=== PATIENT | female | born 1950 | race Caucasian/White ===

== ENCOUNTER → 2016-12-14 | Outpatient (CLI) | payer OTHER ==
[~2016-12-14] MED LIST: ASCO1CAP3 PO; CRAN1CAP15 PO; FERR324T PO
--- NOTE | 2016-12-14 08:45 | DIAGNOSTIC IMAGING REPORT ---
GI SERIES W/O KUB CLINICAL HISTORY: Parasellar joint hernia repair. COMPARISON STUDY: 02/09/2015 FLUOROSCOPY TIME: 2.4 minutes. 19 fluoroscopic spot images were acquired.. FINDINGS: The patient swallowed barium without difficulty. There is been interval repair of the previously identified paraesophageal hernia. No esophageal masses are visualized. There is no evidence of recurrent hernia. Irregularity of the gastric cardia is felt to be postsurgical. No gastric masses are visualized. There is no gastric outlet obstruction. The duodenal bulb appears normal. Ligament Treitz is located in the normal anatomical position. IMPRESSION: 1. Interval repair of the previously identified paraesophageal hernia. No acute findings. Electronically signed by: Samir Toney M.D. 12/14/2016 8:43 AM Dictated Date/Time: 12/14/2016 8:38 AM
== END | disposition home or self-care (01) ==
LOC: C.RAD 08:06
PROVIDERS: ATTEND Surgery
DX: K44.9 Diaphragmatic hernia without obstruction or gangrene (principal)

== ENCOUNTER → 2017-10-02 | Outpatient (CLI) | payer OTHER ==
--- NOTE | 2017-10-03 07:43 | MAMMOGRAPHY REPORT ---
BILATERAL DIGITAL SCREENING MAMMOGRAM TOMOSYNTHESIS WITH CAD: 10/02/2017 CLINICAL HISTORY: Routine screening. Patient has no complaints. TECHNIQUE: Breast tomosynthesis in addition to standard 2D mammography was performed. Current study was also evaluated with a Computer Aided Detection (CAD) system. COMPARISON: Comparison is made to exams dated: 08/19/2016 mammogram, 08/03/2015 mammogram, 01/27/2015 u ltrasound, 01/27/2015 mammogram, 08/14/2014 ultrasound, and 08/14/2014 mammogram - [facility]. BREAST COMPOSITION: The tissue of both breasts is heterogeneously dense, which may obscure small mas ses. FINDINGS: The parenchymal pattern is unchanged. No developing mass, architectural distortion or clus ter of suspicious microcalcifications is seen in either breast. IMPRESSION: ACR BI-RADS CATEGORY 2: BENIGN There is no mammographic evidence of malignancy. A 1 year screening mammogram is recommended. The pa tient will receive written notification of the results. Approximately 10% of breast cancers are not detected with mammography. A negative mammographic report should not delay biopsy if a clinically suggestive mass is present. Lizz aPulino M.D. ay/:10/02/2017 17:29:43 Hand Cloth Examiner: Mariola De La Garza, M, [facility] letter sent: Normal 1/2 BI-RADS Code: ACR BI-RADS Category 2: Benign
== END | disposition home or self-care (01) ==
LOC: C.MAMM 14:43
PROVIDERS: ATTEND Family Medicine
DX: Z12.31 Encounter for screening mammogram for malignant neoplasm of breast (principal)

== ENCOUNTER → 2017-12-26 | Outpatient (CLI) | payer OTHER ==
--- NOTE | 2017-12-26 08:11 | DIAGNOSTIC IMAGING REPORT ---
GI SERIES W/O KUB CLINICAL HISTORY: S/P GASTRIC SURGERYdysphagia. COMPARISON STUDY: None FLUOROSCOPY TIME: 1.9 minutes. FINDINGS: Patient initiates his swallowing function well. The esophagus is normal in course and caliber. There is mild esophageal spasm. There are findings of a prior Fadumo fundoplication. Configuration the stomach on a postoperative basis is unremarkable. Due to bulb fills well. The duodenal sweep is unremarkable. IMPRESSION: 1. Operative changes consistent with a prior Fadumo fundoplication. 2. Mild esophageal spasm. 3. Otherwise negative study. The above report was generated using voice recognition software. It may contain grammatical, syntax or spelling errors. Electronically signed by: Florencio Jimenez M.D. 12/26/2017 8:09 AM Dictated Date/Time: 12/26/2017 8:07 AM
== END | disposition home or self-care (01) ==
LOC: C.RAD 07:28
PROVIDERS: ATTEND Surgery
DX: Z98.890 Other specified postprocedural states (principal); K22.4 Dyskinesia of esophagus